=== PATIENT | female | born 1995 ===

== ENCOUNTER 2022-08-20 14:30 | Outpatient (CLI) | payer OTHER | END 2022-08-20 14:31 | disposition home or self-care (01) | LOC: MAC.INF 14:30 | PROVIDERS: ATTEND Nurse Practitioner | DX: I49.9 Cardiac arrhythmia, unspecified (principal) | CPT/HCPCS: 93246 ==

== ENCOUNTER 2022-09-20 10:30 | Outpatient (CLI) | payer OTHER | END 2022-09-20 10:31 | disposition home or self-care (01) | LOC: MAC.INF 10:30 | PROVIDERS: ATTEND Nurse Practitioner | DX: I49.9 Cardiac arrhythmia, unspecified (principal); I49.1 Atrial premature depolarization; I49.3 Ventricular premature depolarization | CPT/HCPCS: 93248 ==